=== PATIENT | male | born 1940 | race Caucasian/White ===

== ENCOUNTER 2020-10-09 13:51 | Inpatient (IN) | payer MEDICARE ==
[~2020-10-09] VITALS: Ht 182.9 cm; Wt 64.0 kg
[2020-10-09] MEDS ORDERED: CEFEPIME 1 GM in IV D5W 50 ML IV ONE (14:00)
[2020-10-09] MEDS ORDERED: ACETAMINOPHEN 650 MG/SUPP.RECT RC ONE ×2 (14:00→14:14)
[2020-10-09] MEDS ORDERED: VANCOMYCIN 1 GM in IV D5W 250 ML IV ONE (14:00)
--- NOTE | 2020-10-09 14:08 | NUR ---
ELEUTERIO CHESTERJevon "found in a car (pt states lives in a motel) Recently Dx w/sepsis AMS. BS-144" Patient a/ox2, verbally responsive with confusion. Patient appears to be warm to touch. Patient had a large bowel movement.
--- NOTE | 2020-10-09 14:12 | NUR ---
Pericare provided. Ice bath provided to patient for cooling measures.
--- NOTE | 2020-10-09 14:18 | NUR ---
2ND PERIPHERAL IV LINE INSERTED ON RFA, BLOOD DRAWN AND SENT TO LAB.
--- NOTE | 2020-10-09 14:20 | NUR ---
BALDERAS CATHETER REMOVED. AND RE-INSERTED A NEW BALDERAS FR16 WITH 600ML URINE OUTPUT.
[2020-10-09 14:24] LABS: BASOPHILS # (AUTO) 0.1 K/uL (0.0-0.2); BASOPHILS % (AUTO) 0.6 % (0.0-2.0); EOSINOPHILS % (AUTO) 0.3 % (0.0-6.0); HEMATOCRIT 28 % (33-45); HEMOGLOBIN 9.3 g/dL (11.5-14.8); LYMPHOCYTES # (AUTO) 0.4 K/uL (0.8-4.8); LYMPHOCYTES % (AUTO) 5.1 % (20.0-44.0); MEAN CORPUSCULAR HGB CONC 33 g/dl (31.0-36.0); MEAN CORPUSCULAR VOLUME 89 fL (82-100); MONOCYTES # (AUTO) 0.1 K/uL (0.1-1.30); MONOCYTES % (AUTO) 1.4 % (2.0-12.0); NEUTROPHILS # (AUTO) 7.8 K/uL (1.8-8.9); NEUTROPHILS % (AUTO) 92.6 % (43.0-81.0); PLATELET COUNT (AUTO) 314 K/uL (150-450); RED BLOOD CELL COUNT(AUTO) 3.19 MIL/uL (4.0-5.2); WHITE BLOOD COUNT (AUTO) 8.4 K/uL (4.3-11.0)
[2020-10-09 14:25] LABS: BILIRUBIN,URINE Negative (NEGATIVE); COLOR,URINE AMBER (YELLOW); LEUKOCYTE ESTERASE ,URINE Large (NEGATIVE); NITRITE, URINE Negative (NEGATIVE); PROTEIN,URINE 100 mg/dl (NEGATIVE); UGLUCOSE Negative (NEGATIVE); UROBILINOGEN,URINE 0.2 EU/dL (0.2)
[2020-10-09] MEDS ORDERED: IV NS 0.9% 1,000 ML BAG IV ONE (14:30)
[2020-10-09 14:34] LABS: CALCIUM, SERUM 8.5 mg/dL (8.5-10.1); CARBON DIOXIDE 20 mmol/L (21-32); CHLORIDE 106 mmol/L (98-107); CREATININE 1.2 mg/dL (0.6-1.3); GLUCOSE 122 mg/dL (74-106); POTASSIUM 4.3 mmol/L (3.5-5.1); SODIUM SERUM 138 mmol/L (136-145); UREA NITROGEN, BLOOD 29 mg/dL (7-18)
[2020-10-09 14:39] LABS: BACTERIA,URINE Many /HPF (None Seen); RBC,URINE 81-100 /HPF (0-2); SQUAMOUS EPITHELIAL CELL,UR Few /HPF (None Seen); WBC,URINE TOO NUMEROUS TO COUN /HPF (0-3)
[2020-10-09 14:40] LABS: ALANINE AMINOTRANSFERASE 53 U/L (12-78); ALBUMIN 2.2 g/dL (3.4-5.0); ALKALINE PHOSPHATASE 283 U/L (46-116); ASPARTATE AMINOTRANSFERASE 86 U/L (15-37); BILIRUBIN,DIRECT 0.2 mg/dL (0.0-0.2); BILIRUBIN,TOTAL 0.5 mg/dL (0.2-1.0); TOTAL PROTEIN, SERUM 6.7 g/dL (6.4-8.2)
--- NOTE | 2020-10-09 14:40 | NUR ---
Patient taken to CT.
--- NOTE | 2020-10-09 14:48 | NUR ---
Patient came back from CT.
[2020-10-09] MEDS ORDERED: DILT120C47 PO (15:01)
[2020-10-09] MEDS ORDERED: AMLO2.5T4 PO (15:01)
[2020-10-09] MEDS ORDERED: TERA10CA4 PO (15:01)
[2020-10-09] MEDS ORDERED: LITH300C2 PO (15:01)
[2020-10-09] MEDS ORDERED: LEVO50TA8 PO (15:01)
[2020-10-09] MEDS ORDERED: ATOR80TA PO (15:10)
[2020-10-09] MEDS ORDERED: OMEP40CA21 PO (15:10)
--- NOTE | 2020-10-09 15:20 | NUR ---
COVID SWAB SENT TO LAB.
[2020-10-09] MEDS ORDERED: MORPHINE SULFATE INJ 2 MG/ML DISP.SYRIN IV PRN (15:30)
[2020-10-09] MEDS ORDERED: HYDROCODONE/APAP 5/325MG TABLET PO PRN (15:30)
[2020-10-09] MEDS ORDERED: ONDANSETRON HCL/PF 4 MG/2 ML VIAL IVP PRN (15:30)
[2020-10-09] MEDS ORDERED: Z GUARD REMEDY 2 OZ OINT TP PRN (15:30)
[2020-10-09] MEDS ORDERED: ACETAMINOPHEN 325 MG TABLET PO PRN (15:30)
[2020-10-09] MEDS ORDERED: TEMAZEPAM 15 MG CAPSULE PO PRN (15:30)
[2020-10-09] MEDS ORDERED: MAG HYDROX/AL HYDROX/SIMETH 30 ML UDC PO PRN (15:30)
[2020-10-09] MEDS ORDERED: MAGNESIUM HYDROXIDE 30 ML UDC PO PRN (15:30)
--- NOTE | 2020-10-09 15:47 | NUR ---
CONTINUE COOLING MEASURES.
--- NOTE | 2020-10-09 15:57 | NUR ---
NURSING FOREST NURSERY WORKER CALLED FOR TELE BED.
[2020-10-09] MEDS ORDERED: LORAZEPAM INJ 2 MG/ML VIAL IV PRN (16:00)
--- NOTE | 2020-10-09 16:06 | NUR ---
room 108
--- NOTE | 2020-10-09 16:23 | NUR ---
REPORT GIVEN TO PAUL LACKEY FOR VANCE.
--- NOTE | 2020-10-09 17:12 | NUR ---
PATIENT TRANSFERRED TO ROOM 108, PATIENT IS MORE ALERT, ORIENTED AND VERBALLY RESPONSIVE, ABLE TO COMMUNICATE. PATIENT ENDORSED TO PAUL LACKEY.
[2020-10-09 17:45] VITALS: BP 113/43
[2020-10-09] MEDS ORDERED: ENOXAPARIN SODIUM 40 MG/0.4 ML DISP.SYRIN SQ SCH (18:00)
[2020-10-09] MEDS ORDERED: ASPIRIN 325 MG TABLET PO ONE (18:00)
--- NOTE | 2020-10-09 20:30 | NUR ---
RN OPENING NOTE RECEIVED PT AWAKE IN BED. A/O X3. PT IS STABLE ON ROOM AIR. NO SOB OR S/S OF RESPIRATORY DISTRESS NOTED. PT HAS NO C/O PAIN OR DISCOMFORT AT THIS TIME. IV ACCESS IN LEFT AC #18 AND RIGHT FA #18, INTACT AND PATENT. SAFETY MEASURES MAINTAINED. BED IN LOWEST LOCKED POSITION, HOB ELEVATED, SIDE RAILS UP X2. CALL LIGHT AND TABLE WITHIN REACH. WILL CONTINUE WITH PLAN OF CARE.
[2020-10-10] VITALS: BP 113/58
[2020-10-10] MEDS: CEFEPIME 1 GM in IV D5W 50 ML IV SCH ×2 (02:00→13:09)
[2020-10-10] MEDS ORDERED: VANCOMYCIN 0.75 GM in IV D5W 250 ML IV SCH (03:00)
[2020-10-10] MEDS: IV NS 0.9% 1,000 ML IV PRN ×3 (03:50→21:30)
[2020-10-10 04:00] VITALS: BP 117/45
--- NOTE | 2020-10-10 06:25 | NUR ---
RN CLOSING NOTE PT IS AWAKE IN BED. A/O X3. PT IS STABLE ON ROOM AIR. NO SOB OR S/S OF RESPIRATORY DISTRESS NOTED. TELE FRAME TABLE OPERATOR HELPER READS SR 62. PT HAS NO C/O PAIN OR DISCOMFORT AT THIS TIME. IV ACCESS IS INTACT, PATENT, AND FLUSHING WELL. ALL NEEDS HAVE BEEN MET. SAFETY PRECAUTIONS MAINTAINED AT ALL TIMES. BED IN LOWEST LOCKED POSITION, HOB ELEVATED, SIDE RAILS UP X2. CALL LIGHT AND TABLE WITHIN REACH. WILL ENDORSE TO ONCOMING NURSE FOR VANCE.
[2020-10-10 07:04] LABS: BASOPHILS % (AUTO) 0.1 % (0.0-2.0); EOSINOPHILS % (AUTO) 0.2 % (0.0-6.0); HEMATOCRIT 26 % (39-51); HEMOGLOBIN 8.2 g/dL (13.5-17.5); LYMPHOCYTES # (AUTO) 1.4 K/uL (0.8-4.8); LYMPHOCYTES % (AUTO) 7.1 % (20.0-44.0); MEAN CORPUSCULAR HGB CONC 32 g/dl (31.0-36.0); MEAN CORPUSCULAR VOLUME 90 fL (80-96); MONOCYTES # (AUTO) 1.7 K/uL (0.1-1.30); MONOCYTES % (AUTO) 8.4 % (2.0-12.0); NEUTROPHILS # (AUTO) 16.8 K/uL (1.8-8.9); NEUTROPHILS % (AUTO) 84.2 % (43.0-81.0); PLATELET COUNT (AUTO) 287 K/uL (150-450); RED BLOOD CELL COUNT(AUTO) 2.84 MIL/uL (4.5-6.0); WHITE BLOOD COUNT (AUTO) 19.9 K/uL (4.3-11.0)
[2020-10-10 07:11] LABS: CALCIUM, SERUM 7.8 mg/dL (8.5-10.1); CREATININE 0.9 mg/dL (0.6-1.3); MAGNESIUM 2.1 mg/dL (1.8-2.4); PHOSPHORUS 3.8 mg/dL (2.5-4.9); POTASSIUM 3.6 mmol/L (3.5-5.1)
[2020-10-10 07:34] LABS: THYROID STIMULATING HORMONE 0.131 uIU/mL (0.358-3.74)
[2020-10-10 08:00] VITALS: BP 130/35
--- NOTE | 2020-10-10 08:05 | NUR ---
RN notes: Pt received alert awake oriented X 3. On RA, no breathing distress noted. Denies pain & discomfort. SR on tele monitor. IV site I/D/C, running IV fluids as ordered. Safety measures observed. Encourage pt to call for assistance. Call light within reach. Will continue to monitor.
[2020-10-10] MEDS: ASPIRIN 81 MG TAB.CHEW PO SCH (08:50)
[2020-10-10] MEDS: PANTOPRAZOLE 40 MG VIAL IV SCH (08:50)
[2020-10-10] MEDS: ENOXAPARIN SODIUM 80 MG/0.8 ML DISP.SYRIN SQ SCH ×2 (10:30→21:07)
[2020-10-10] MEDS: DILTIAZEM HCL CD 120 MG PO SCH (11:55)
[2020-10-10 12:00] VITALS: BP 116/45
--- NOTE | 2020-10-10 15:34 | NUR ---
RN Note: refused turn & reposition q2h Encourage pt to turn & reposition q2h. R/B discussed. Pt verbalized understanding. Offered assistance. Still refused. At this time refused skin assessment as well to monitor sacrum redness. Will attempt again to re-assess skin.
[2020-10-10 16:00] VITALS: BP 123/46
[2020-10-10] MEDS: ENSURE ENLIVE 237 ML LIQUID (VANILLA) PO SCH (17:00)
--- NOTE | 2020-10-10 18:33 | NUR ---
RN Note: Pt remains stable during shift. Agree with DVT pump as ordered. Noted turning & repositioning independently. Pt requested preferred male nurse. beaming machine operator notified of pt request. Will endorse to PM shift for continuity of care.
--- NOTE | 2020-10-10 19:30 | NUR ---
RN OPENING NOTES: RECEIVED PT A/OX3-4 IN BED SLEEPING COMFORTABLY. PATIENT IN NO S/SX OF ACUTE DISTRESS AT THIS TIME. NO SOB NOTED. PATIENT'S BREATHING IS EVEN AND UNLABORED. PATIENT IS ON ROOM AIR; TOLERATING WELL WITH O2 SAT OF >95 AT THE TOME OF RECEIVED. PATIENT ON TELE MONITORING READING SINUS RHYTHM HR IS @60s AT THE TIME OF RECEIVED. PATIENT ON CARDIAC DIET; TOLERATES WELL. NOTED IV SITE ON R FA #18 ; PATENT, INTACT AND FLUSHING WELL; NO S/S OF INFECTION OR INFILTRATION. WITH IV FLUID RUNNING ORDERED. BALDERAS CATH IN PLACE, MODERATE URINE OUTPUT NOTED. WITH DVT PUMP ON. SAFETY MEASURES HAVE BEEN PROVIDED AND IMPLEMENTED. PATIENT BED ALARM IS ON. HEAD OF BED ELEVATED. BED IS LOCKED, IN LOWEST POSITION AND SIDE RAILS UP. CALL LIGHT WITHIN REACH OF THE PATIENT. APPLICABLE ISOLATION PRECAUTIONS IN PLACE. WILL CONTINUE TO MONITOR AND REASSESS FOR ANY CHANGES AND WILL CARRY OUT ANY ONGOING AND ACTIVE MD ORDER.
[2020-10-10 20:00] VITALS: BP 101/44
[2020-10-10] MEDS: TERAZOSIN HCL 5 MG CAPSULE PO SCH (21:08)
[2020-10-10] MEDS: ATORVASTATIN 10 MG TABLET PO SCH (21:08)
--- NOTE | 2020-10-10 23:00 | NUR ---
RN NOTES NO CHANGE IN PATIENT CONDITION AT THIS TIME PATIENT VITALS STABLE, NO SIGNS OF ACUTE RESPIRATORY DISTRESS. CORPORATE INVESTIGATOR MADE AWARE. WILL CONTINUE TO MONITOR AND REASSESS FOR ANY CHANGES THROUGHOUT THE SHIFT.
[2020-10-11] VITALS: BP 102/39
[2020-10-11] MEDS: CEFEPIME 1 GM in IV D5W 50 ML IV SCH ×2 (01:03→13:01)
[2020-10-11 04:00] VITALS: BP 116/44
[2020-10-11 06:33] LABS: BASOPHILS % (AUTO) 0.2 % (0.0-2.0); HEMATOCRIT 24 % (39-51); LYMPHOCYTES # (AUTO) 1.1 K/uL (0.8-4.8); LYMPHOCYTES % (AUTO) 10.9 % (20.0-44.0); MEAN CORPUSCULAR HGB CONC 33 g/dl (31.0-36.0); MEAN CORPUSCULAR VOLUME 88 fL (80-96); MONOCYTES % (AUTO) 9.9 % (2.0-12.0); NEUTROPHILS # (AUTO) 8.1 K/uL (1.8-8.9); PLATELET COUNT (AUTO) 305 K/uL (150-450); RED BLOOD CELL COUNT(AUTO) 2.76 MIL/uL (4.5-6.0); WHITE BLOOD COUNT (AUTO) 10.5 K/uL (4.3-11.0)
--- NOTE | 2020-10-11 06:52 | NUR ---
RN CLOSING NOTE: PATIENT REMAINS IN ROOM IN NO SIGNS OF RESPIRATORY DISTRESS, PATIENT STILL ON ROOM AIR ;TOLERATING WELL SATURATING @ >95% SP02. SAFETY MEASURES IMPLEMENTED, BED IN LOWEST POSITION, LOCKED, SIDE RAILS UP, CALL LIGHT WITHIN REACH. ALL NEEDS AND ORDERS ADDRESSED DURING THE SHIFT. IV ACCESS MAINTAINED INTACT, SECURED AND FLUSHING WELL. ALL DUE MEDS GIVEN ORDERED & SCHEDULED ; PATIENT TOLERATED WELL. PATIENT KEPT CLEAN & COMFORTABLE WITHIN THE SHIFT. PATIENT ENDORSED TO INCOMING SHIFT RN WITH STABLE VITAL SIGN AND FOR CONTINUITY OF CARE AND WILL ENDORSE INFO ABOUT SCHEDULED PROCEDURE CT ANGIO ; CONSENT AND PRE-OP CHECK LIST IN THE CHART, NO TIME SCHEDULED TIME GIVEN. MILK COLLECTOR MADE AWARE.
[2020-10-11] MEDS: LEVOTHYROXINE SODIUM 50 MCG TABLET PO SCH (07:30)
--- NOTE | 2020-10-11 07:45 | NUR ---
RN NOTE PATIENT IS IN BED WITH HOB AT SEMII FOWLERS POSITION. PATIENT IS AOX3. PATIENT IS ON ROOM AIR WITH NO SIGNS OF LABORED BREATHING. BALDERAS CATHETER IS IN PLACE DRAINING CLEAR YELLOW URINE. RFA #18 IS PATENT AND INTACT. BED IS LOCKED IN THE LOWEST POSITION, 3 GUARD RAILS RAISED, CALL MOONEY WITHIN REACH AND ALL HOSPITAL SAFETY PRECAUTIONS ARE BEING FOLLOWED. WILL CONTINUE TO MONITOR THROUGHOUT SHIFT.
[2020-10-11 08:00] VITALS: BP 117/52
[2020-10-11] MEDS: PANTOPRAZOLE 40 MG VIAL IV SCH (08:03)
[2020-10-11] MEDS: ENOXAPARIN SODIUM 80 MG/0.8 ML DISP.SYRIN SQ SCH ×2 (08:04→21:14)
[2020-10-11] MEDS: DILTIAZEM HCL CD 120 MG PO SCH (08:05)
[2020-10-11] MEDS: ASPIRIN 81 MG TAB.CHEW PO SCH (08:05)
[2020-10-11] MEDS: ENSURE ENLIVE 237 ML LIQUID (VANILLA) PO SCH ×2 (08:06→17:48)
[2020-10-11 08:25] LABS: ALBUMIN 1.5 g/dL (3.4-5.0); BILIRUBIN,TOTAL 0.2 mg/dL (0.2-1.0); CALCIUM, SERUM 7.6 mg/dL (8.5-10.1); CREATININE 0.8 mg/dL (0.6-1.3); POTASSIUM 3.6 mmol/L (3.5-5.1); TOTAL PROTEIN, SERUM 4.9 g/dL (6.4-8.2)
--- NOTE | 2020-10-11 09:28 | NUR ---
TRIED 3X G18 ON AC UNSUCCESSFUL,OBTAINED MIDLINE ORDER FOR CTCA.NURSING SUP MADE AWARE.
[2020-10-11] MEDS ORDERED: METOPROLOL TARTRATE INJ 5 MG/5 ML AMPUL IVP PRN (11:00)
[2020-10-11] MEDS ORDERED: NITROGLYCERIN 0.4 MG/TAB BOTTLE SL PRN (11:00)
[2020-10-11] MEDS ORDERED: METOPROLOL TARTRATE INJ 5 MG/5 ML AMPUL ONE (11:33)
[2020-10-11] MEDS ORDERED: NITROGLYCERIN 0.4 MG/TAB BOTTLE ONE (11:33)
[2020-10-11 12:00] VITALS: BP 98/53
[2020-10-11] MEDS: IV NS 0.9% 1,000 ML IV PRN (12:13)
[2020-10-11 16:00] VITALS: BP 119/58
--- NOTE | 2020-10-11 18:54 | NUR ---
RN NOTE PATIENT IS IN BED WITH HOB AT SEMI FOWLERS POSITION. PATIENT IS AOX3. PATIENT IS ON ROOM AIR WITH NO SIGNS OF LABORED BREATHING. BALDERAS CATHETER IS IN PLACE DRAINING CLEAR YELLOW URINE. RFA #18 AND JELANI #18 ARE PATENT AND INTACT. BED IS LOCKED IN THE LOWEST POSITION, 3 GUARD RAILS RAISED, CALL MOONEY WITHIN REACH AND ALL HOSPITAL SAFETY PRECAUTIONS ARE BEING FOLLOWED. WILL CONTINUE TO MONITOR THROUGHOUT SHIFT. ALL DUE MEDS GIVEN AND PATIENT REMAINED STABLE THROUGHOUT SHIFT. WILL ENDORSE TO EXECUTIVE VP RN.
[2020-10-11 20:00] VITALS: BP 130/48
--- NOTE | 2020-10-11 20:00 | NUR ---
RN NOTE RECEIVED PT IN BED A/A/OX3,ON RA SATING 94TO95%.PT IS ON TELE MONITOR SHOWING V PACING WITH HR IN 70s.PT HAS BALDERAS DRAINING YELLOW URINE,
[2020-10-11] MEDS: ATORVASTATIN 10 MG TABLET PO SCH (21:19)
[2020-10-11] MEDS: TERAZOSIN HCL 5 MG CAPSULE PO SCH (21:19)
[2020-10-12] VITALS: BP 120/55
[2020-10-12] MEDS: CEFEPIME 1 GM in IV D5W 50 ML IV SCH (02:02)
[2020-10-12] MEDS: IV NS 0.9% 1,000 ML IV PRN (02:03)
[2020-10-12 04:00] VITALS: BP 133/68
--- NOTE | 2020-10-12 07:13 | NUR ---
RN NOTE REPORT GIVEN TO ONCOMING SHIFT FOR VANCE.
[2020-10-12 07:18] LABS: CREATININE 0.9 mg/dL (0.6-1.3)
--- NOTE | 2020-10-12 07:40 | NUR ---
RN NOTE PATIENT IS IN BED WITH HOB AT SEMII FOWLERS POSITION. PATIENT IS AOX3. PATIENT IS ON ROOM AIR WITH NO SIGNS OF LABORED BREATHING. BALDERAS CATHETER IS IN PLACE DRAINING CLEAR YELLOW URINE. RFA AND JELANI #18 ARE PATENT AND INTACT. BED IS LOCKED IN THE LOWEST POSITION, 3 GUARD RAILS RAISED, CALL MOONEY WITHIN REACH AND ALL HOSPITAL SAFETY PRECAUTIONS ARE BEING FOLLOWED. WILL CONTINUE TO MONITOR THROUGHOUT SHIFT.
[2020-10-12 08:00] VITALS: BP 133/55
[2020-10-12] MEDS: LEVOTHYROXINE SODIUM 50 MCG TABLET PO SCH (08:23)
[2020-10-12] MEDS: ASPIRIN 81 MG TAB.CHEW PO SCH (08:23)
[2020-10-12] MEDS: DILTIAZEM HCL CD 120 MG PO SCH (08:23)
[2020-10-12] MEDS: PANTOPRAZOLE 40 MG VIAL IV SCH (08:23)
[2020-10-12] MEDS: ENOXAPARIN SODIUM 80 MG/0.8 ML DISP.SYRIN SQ SCH (08:25)
[2020-10-12] MEDS: ENSURE ENLIVE 237 ML LIQUID (VANILLA) PO SCH ×2 (08:27→16:27)
--- NOTE | 2020-10-12 10:21 | NUR ---
WOUND CARE CONSULT: PT PRESENTS WITH SACRAL SCAR, PRESENT ON ADMISSION. PT STATES HAD A WOUND RECENTLY ON HIS SACRUM AND THAT IT HEALED. RECOMMENDATIONS MADE FOR SKIN PROTECTION. DISCUSSED WITH NURSING STAFF. SHERRIE ISLAS MD IN AGREEMENT WITH PLAN OF CARE. Addendum: 10/12/20 at 1022 by LATANYA ORDAZ WNDNU Amended: Links added.
[2020-10-12 12:00] VITALS: BP 105/55
[2020-10-12] MEDS ORDERED: MEROPENEM 1 G in IV NS 0.9% 100 ML IV ONE (13:00)
[2020-10-12] MEDS ORDERED: OLAN5TAB3 PO (14:33)
[2020-10-12] MEDS ORDERED: DIVA-76 PO (14:33)
[2020-10-12] MEDS ORDERED: ARIP5TAB10 PO (14:33)
[2020-10-12 16:00] VITALS: BP 133/58
--- NOTE | 2020-10-12 18:53 | NUR ---
RN NOTE PATIENT IS IN BED WITH HOB AT SEMII FOWLERS POSITION. PATIENT IS AOX3. PATIENT IS ON ROOM AIR WITH NO SIGNS OF LABORED BREATHING. BALDERAS CATHETER IS IN PLACE DRAINING CLEAR YELLOW URINE. RFA AND JELANI #18 ARE PATENT AND INTACT. BED IS LOCKED IN THE LOWEST POSITION, 3 GUARD RAILS RAISED, CALL MOONEY WITHIN REACH AND ALL HOSPITAL SAFETY PRECAUTIONS ARE BEING FOLLOWED. ALL DUE MEDS GIVEN AND PATIENT REMAINED STABLE THROUGHOUT SHIFT. WILL ENDORSE TO SUPERVISOR LAMP SHADES RN.
[2020-10-12 20:00] VITALS: BP 117/49
[2020-10-12] MEDS: MEROPENEM 1 G in IV NS 0.9% 100 ML IV SCH (21:48)
[2020-10-12] MEDS: ATORVASTATIN 10 MG TABLET PO SCH (21:49)
[2020-10-12] MEDS: TERAZOSIN HCL 5 MG CAPSULE PO SCH (21:49)
[2020-10-13] VITALS: BP 127/61
[2020-10-13 04:00] VITALS: BP 131/64
[2020-10-13] MEDS: MEROPENEM 1 G in IV NS 0.9% 100 ML IV SCH ×3 (04:07→21:11)
[2020-10-13 06:17] LABS: CALCIUM, SERUM 8.1 mg/dL (8.5-10.1); CREATININE 0.8 mg/dL (0.6-1.3); POTASSIUM 4.2 mmol/L (3.5-5.1)
--- NOTE | 2020-10-13 07:30 | NUR ---
RN OPENING NOTE PT A/Ox3/3 IN BED SEMIFOWLER'S BREATHING RA SPO2 94%, WITH NO SIGNS OF RESP DISTRESS OR SOB, BREATHING EVEN AND UNLABORED. PT LT UPPER CHEST WALL PACEMAKER- V-PACING IN 70s ON TELEBOX. PT HAS JELANI MIDLINE SL, FLUSHED, PATENT AND INTACT, NO SIGNS OF INFILTRATION/INFECTION. PT HAS BALDERAS CATH DRAINING CLEAR YELLOW URINE TO GRAVITY. PT SACRAL SCAR COVERED IN MEPILEX NOTED. PT CURRENTLY DENIES PAIN, IS REQUESTING BIPOLAR MEDS, WILL F/U WITH . ALL PT SAFETY PRECAUTIONS IN PLACE, WILL CONT TO MONITOR
[2020-10-13 08:00] VITALS: BP 145/52
--- NOTE | 2020-10-13 08:00 | NUR ---
RN NOTE PT CONSUMED BREAKFAST AND COFFEE, LEXISCAN NUCLEAR STRESS TEST SHCEDULED FOR TOMORROW @ 0700. PT TO BE NPO AFTER DINNER TONIGHT
[2020-10-13] MEDS: LEVOTHYROXINE SODIUM 50 MCG TABLET PO SCH (08:53)
[2020-10-13] MEDS: PANTOPRAZOLE 40 MG VIAL IV SCH (08:53)
[2020-10-13] MEDS: ASPIRIN 81 MG TAB.CHEW PO SCH (08:53)
[2020-10-13] MEDS: DILTIAZEM HCL CD 120 MG PO SCH (08:54)
[2020-10-13] MEDS: ENSURE ENLIVE 237 ML LIQUID (VANILLA) PO SCH ×3 (08:55→17:54)
[2020-10-13] MEDS ORDERED: OLANZAPINE 5 MG TABLET PO PRN (10:30)
[2020-10-13 10:42] LABS: BASOPHILS # (AUTO) 0.1 K/uL (0.0-0.2); BASOPHILS % (AUTO) 1.3 % (0.0-2.0); EOSINOPHILS % (AUTO) 3.7 % (0.0-6.0); HEMATOCRIT 25 % (39-51); HEMOGLOBIN 8.3 g/dL (13.5-17.5); LYMPHOCYTES # (AUTO) 1.5 K/uL (0.8-4.8); LYMPHOCYTES % (AUTO) 17.4 % (20.0-44.0); MEAN CORPUSCULAR HGB CONC 33 g/dl (31.0-36.0); MEAN CORPUSCULAR VOLUME 88 fL (80-96); MONOCYTES # (AUTO) 0.8 K/uL (0.1-1.30); MONOCYTES % (AUTO) 9.4 % (2.0-12.0); NEUTROPHILS # (AUTO) 5.9 K/uL (1.8-8.9); NEUTROPHILS % (AUTO) 68.2 % (43.0-81.0); PLATELET COUNT (AUTO) 317 K/uL (150-450); RED BLOOD CELL COUNT(AUTO) 2.83 MIL/uL (4.5-6.0); WHITE BLOOD COUNT (AUTO) 8.6 K/uL (4.3-11.0)
[2020-10-13] MEDS: ARIPIPRAZOLE 5 MG TABLET PO SCH (11:30)
[2020-10-13] MEDS: ENOXAPARIN SODIUM 40 MG/0.4 ML DISP.SYRIN SQ SCH (11:31)
[2020-10-13 12:00] VITALS: BP 127/49
[2020-10-13] MEDS: DIVALPROEX SODIUM 250 MG TABLET.DR PO SCH ×2 (12:30→17:54)
[2020-10-13 16:00] VITALS: BP 123/61
--- NOTE | 2020-10-13 19:15 | NUR ---
RN CLOSING NOTE NO CHANGES TO PT STATUS. PT NPO UNTIL LEXISCAN STRESS TEST TOMORROW. ALL PT SAFETY PRECAUTIONS IN PLACE. VANCE ENDORSED TO RN
[2020-10-13 20:00] VITALS: BP 137/55
[2020-10-13] MEDS: TERAZOSIN HCL 5 MG CAPSULE PO SCH (21:42)
[2020-10-13] MEDS: ATORVASTATIN 40 MG TABLET PO SCH (21:43)
[2020-10-14] VITALS: BP 109/60
[2020-10-14 04:00] VITALS: BP 135/58
[2020-10-14] MEDS: MEROPENEM 1 G in IV NS 0.9% 100 ML IV SCH ×3 (05:34→21:16)
[2020-10-14] MEDS ORDERED: REGADENOSON 0.4 MG/5 ML DISP.SYRIN IVP ONE (07:00)
[2020-10-14 07:03] LABS: BASOPHILS # (AUTO) 0.1 K/uL (0.0-0.2); BASOPHILS % (AUTO) 0.8 % (0.0-2.0); EOSINOPHILS % (AUTO) 4.7 % (0.0-6.0); HEMATOCRIT 28 % (39-51); HEMOGLOBIN 9.3 g/dL (13.5-17.5); LYMPHOCYTES # (AUTO) 1.8 K/uL (0.8-4.8); LYMPHOCYTES % (AUTO) 16.8 % (20.0-44.0); MEAN CORPUSCULAR HGB CONC 33 g/dl (31.0-36.0); MEAN CORPUSCULAR VOLUME 88 fL (80-96); MONOCYTES # (AUTO) 0.9 K/uL (0.1-1.30); MONOCYTES % (AUTO) 8.9 % (2.0-12.0); NEUTROPHILS # (AUTO) 7.2 K/uL (1.8-8.9); NEUTROPHILS % (AUTO) 68.8 % (43.0-81.0); PLATELET COUNT (AUTO) 372 K/uL (150-450); RED BLOOD CELL COUNT(AUTO) 3.19 MIL/uL (4.5-6.0); WHITE BLOOD COUNT (AUTO) 10.5 K/uL (4.3-11.0)
[2020-10-14] MEDS: LEVOTHYROXINE SODIUM 50 MCG TABLET PO SCH ×2 (07:10→09:14)
--- NOTE | 2020-10-14 07:20 | NUR ---
RN OPENING NOTES RECEIVED PT IN BED. A/O X3-4. STABLE ON ROOM AIR. NO S/S OF RESPIRATORY DISTRESS. LEFT UPPER CHEST WALL PACEMAKER, V-PACING IN 70s ON TELE MONITOR. IV ACCESS ON JELANI MIDLINE. INTACT, PATENT AND FLUSHED. BALDERAS CATH IN PLACE DRAINING CLEAR YELLOW URINE TO GRAVITY. NO PAIN REPORTED AT THIS TIME. PT CONSENTS LEXISCAN STRESS TEST FOR THIS MORNING. SAFETY PRECAUTIONS IN PLACE. CALL LIGHT WITHIN REACH. BED LOCKED AND IN LOWEST POSITION WITH SIDE RAILS UP X2. WILL CONTINUE TO MONITOR.
[2020-10-14 07:35] LABS: CALCIUM, SERUM 8.4 mg/dL (8.5-10.1); CREATININE 0.9 mg/dL (0.6-1.3); POTASSIUM 4.9 mmol/L (3.5-5.1)
[2020-10-14 08:00] VITALS: BP 137/56
--- NOTE | 2020-10-14 08:30 | NUR ---
RN NOTES PT BROUGHT BACK TO ROOM, IN STABLE CONDITION. VS STABLE. PT IS ON CARDIAC DIET. ATE 100% ON BREAKFAST.
[2020-10-14] MEDS ORDERED: PANTOPRAZOLE 40 MG/PACK PACK GT SCH (09:00)
[2020-10-14] MEDS: ASPIRIN 81 MG TAB.CHEW PO SCH (09:14)
[2020-10-14] MEDS: DILTIAZEM HCL CD 120 MG PO SCH (09:14)
[2020-10-14] MEDS: DIVALPROEX SODIUM 250 MG TABLET.DR PO SCH ×3 (09:14→17:07)
[2020-10-14] MEDS: PANTOPRAZOLE 40 MG/PACK PACK PO SCH (09:14)
[2020-10-14] MEDS: ARIPIPRAZOLE 5 MG TABLET PO SCH (09:14)
[2020-10-14] MEDS: ENSURE ENLIVE 237 ML LIQUID (VANILLA) PO SCH ×2 (09:15→17:14)
[2020-10-14] MEDS: ENOXAPARIN SODIUM 40 MG/0.4 ML DISP.SYRIN SQ SCH (09:16)
[2020-10-14 12:00] VITALS: BP 124/56
[2020-10-14 16:00] VITALS: BP 123/85
--- NOTE | 2020-10-14 19:08 | NUR ---
RN CLOSING NOTES NO SIGNIFICANT CHANGES THROUGHOUT THE SHIFT. NO SOB OR ANY PAIN REPORTED. ALL DUE MEDS GIVEN. NEEDS ATTENDED. KEPT CLEAN AND DRY. RESTING COMFORTABLY IN BED. ENDORSED TO NIGHT RN FOR VANCE.
--- NOTE | 2020-10-14 19:30 | NUR ---
RN NOTE RECEIVED PATIENT IN BED. A/OX4. TOLERATING ROOM AIR. RESPIRATIONS ARE EVEN AND UNLABORED. NO S/S SOB NOTED. NO C/O PAIN. EXTERNAL TELE MONITOR READS 100% V-PACING HR 80. IN NO APPARENT DISTRESS. IV ACCESS IN JELANI MIDLINE PATENT ND SALINE LOCKED. BED IS LOW AND LOCKED, HOB ELEVATED IN SEMI FOWLERS,SIDE RAILS UP X3, CALL LIGHT WITHIN REACH. WILL CONTINUE TO MONITOR THROUGHOUT SHIFT.
[2020-10-14 20:00] VITALS: BP 128/59
[2020-10-14] MEDS: TERAZOSIN HCL 5 MG CAPSULE PO SCH (21:16)
[2020-10-14] MEDS: ATORVASTATIN 40 MG TABLET PO SCH (21:16)
[2020-10-15 04:00] VITALS: BP 112/54
[2020-10-15] MEDS: MEROPENEM 1 G in IV NS 0.9% 100 ML IV SCH ×3 (04:54→21:01)
--- NOTE | 2020-10-15 06:29 | NUR ---
RN NOTE PATIENT RESTING IN BED. A/OX4. REMAINS TOLERATING ROOM AIR. NO RESP DISTRESS. NO PAIN. CONTINUES TO BE 100% V-PACING.NO DISTRESS. IV IN JELANI MIDLINE RUNNING NS@100ML/HR. BED REMAINS LOW AND LOCKED, HOB ELEVATED IN SEMI FOWLERS,SIDE RAILS UP X3, CALL LIGHT WITHIN REACH. WILL ENDORSE TO ONCOMING SHIFT. Addendum: 10/15/20 at 0633 by LISA WOO RN PATIENT HAS NO FLUIDS RUNNING
[2020-10-15 06:32] LABS: BASOPHILS # (AUTO) 0.1 K/uL (0.0-0.2); BASOPHILS % (AUTO) 0.6 % (0.0-2.0); HEMATOCRIT 29 % (39-51); HEMOGLOBIN 9.3 g/dL (13.5-17.5); LYMPHOCYTES # (AUTO) 1.8 K/uL (0.8-4.8); LYMPHOCYTES % (AUTO) 18.7 % (20.0-44.0); MEAN CORPUSCULAR HGB CONC 32 g/dl (31.0-36.0); MEAN CORPUSCULAR VOLUME 88 fL (80-96); MONOCYTES # (AUTO) 0.8 K/uL (0.1-1.30); MONOCYTES % (AUTO) 7.9 % (2.0-12.0); NEUTROPHILS # (AUTO) 6.4 K/uL (1.8-8.9); NEUTROPHILS % (AUTO) 67.8 % (43.0-81.0); PLATELET COUNT (AUTO) 399 K/uL (150-450); RED BLOOD CELL COUNT(AUTO) 3.29 MIL/uL (4.5-6.0); WHITE BLOOD COUNT (AUTO) 9.5 K/uL (4.3-11.0)
[2020-10-15 06:46] LABS: CALCIUM, SERUM 8.4 mg/dL (8.5-10.1); CREATININE 0.9 mg/dL (0.6-1.3); POTASSIUM 4.8 mmol/L (3.5-5.1)
--- NOTE | 2020-10-15 07:56 | NUR ---
AMBULANCE ATTENDANT NOTE PATIENT RESTING IN BED. A/OX4. REMAINS TOLERATING ROOM AIR. NO RESP DISTRESS. NO PAIN. CONTINUES TO BE 100% V-PACING.NO DISTRESS. IV IN JELANI MIDLINEINPLCED AND FLUSHED WELL . BED REMAINS LOW AND LOCKED, HOB ELEVATED IN SEMI FOWLERS,SIDE RAILS UP X3, CALL LIGHT WITHIN REACH NO SOB NOTED WILL CONT TO MONITOR CLOSELY
[2020-10-15 08:00] VITALS: BP 128/56
[2020-10-15] MEDS: DIVALPROEX SODIUM 250 MG TABLET.DR PO SCH ×3 (08:13→16:04)
[2020-10-15] MEDS: DILTIAZEM HCL CD 120 MG PO SCH (08:13)
[2020-10-15] MEDS: ARIPIPRAZOLE 5 MG TABLET PO SCH (08:13)
[2020-10-15] MEDS: ASPIRIN 81 MG TAB.CHEW PO SCH (08:14)
[2020-10-15] MEDS: PANTOPRAZOLE 40 MG/PACK PACK PO SCH (08:14)
[2020-10-15] MEDS: ENOXAPARIN SODIUM 40 MG/0.4 ML DISP.SYRIN SQ SCH (08:15)
[2020-10-15] MEDS: ENSURE ENLIVE 237 ML LIQUID (VANILLA) PO SCH ×2 (09:08→16:03)
--- NOTE | 2020-10-15 10:19 | NUR ---
television repair teacher note seen by dr huggins updated patient condition , awaiting for placement
[2020-10-15 12:00] VITALS: BP 108/59
--- NOTE | 2020-10-15 12:17 | NUR ---
ENGINEERING DOCUMENTATION SPECIALIST NOTE HAVING LUNCH , ALL NEEDS ATTENDED
--- NOTE | 2020-10-15 15:06 | NUR ---
telegraph messenger note seen by pt able to do some exercises ,not in distress
[2020-10-15 16:00] VITALS: BP 126/50
--- NOTE | 2020-10-15 18:17 | NUR ---
MONOMER RECOVERY SUPERVISOR NOTE RESTING COMFORTABLY , ALL NEEDS ATTENDED , ON RA NO SOB NOTED NO C\O PAIN OR DISCOMFORT , ON TELE MONITOR V PACING , RT UPPER ARM MID LINE IN PLACE AND FLUSHED WELL , BED IN LOWEST AND LOCKED POSITION , CALL LIGHT WITHIN REACH , WILL CONT TO MONITOR CLOSELY
--- NOTE | 2020-10-15 19:00 | NUR ---
RN NOTE RECEIVED PATIENT IN BED, AO X 3-4, IN NO S/SX OF ACUTE DISTRESS AT THIS TIME. SATURATION AT 95% ON ROOM AIR, V-PACING ON THE MONITOR, HR IS 81. NOTED JELANI MIDLINE INTACT, ALL HUBS PATENT AND FLUSHING WELL, NO S/S OF INFECTION. SAFETY MEASURES IMPLEMENTED. PATIENT BED ALARM IS ON. HEAD OF BED ELEVATED. BED IS LOCKED, IN LOWEST POSITION AND SIDE RAILS UP. CALL LIGHT WITHIN REACH OF THE PATIENT. WILL CONTINUE TO MONITOR AND REASSESS FOR ANY CHANGES.
[2020-10-15 20:00] VITALS: BP 105/64
[2020-10-15] MEDS: ATORVASTATIN 40 MG TABLET PO SCH (21:03)
[2020-10-15] MEDS: TERAZOSIN HCL 5 MG CAPSULE PO SCH (21:03)
[2020-10-16] VITALS: BP 96/51
[2020-10-16 04:00] VITALS: BP 117/57
[2020-10-16] MEDS: MEROPENEM 1 G in IV NS 0.9% 100 ML IV SCH ×2 (05:08→12:42)
[2020-10-16 05:43] LABS: BASOPHILS # (AUTO) 0.1 K/uL (0.0-0.2); BASOPHILS % (AUTO) 0.6 % (0.0-2.0); EOSINOPHILS % (AUTO) 4.6 % (0.0-6.0); HEMATOCRIT 28 % (39-51); HEMOGLOBIN 9.1 g/dL (13.5-17.5); LYMPHOCYTES # (AUTO) 1.9 K/uL (0.8-4.8); LYMPHOCYTES % (AUTO) 19.6 % (20.0-44.0); MEAN CORPUSCULAR HGB CONC 33 g/dl (31.0-36.0); MEAN CORPUSCULAR VOLUME 89 fL (80-96); MONOCYTES # (AUTO) 0.8 K/uL (0.1-1.30); MONOCYTES % (AUTO) 8.5 % (2.0-12.0); NEUTROPHILS # (AUTO) 6.3 K/uL (1.8-8.9); NEUTROPHILS % (AUTO) 66.7 % (43.0-81.0); PLATELET COUNT (AUTO) 409 K/uL (150-450); RED BLOOD CELL COUNT(AUTO) 3.11 MIL/uL (4.5-6.0); WHITE BLOOD COUNT (AUTO) 9.5 K/uL (4.3-11.0)
[2020-10-16 05:55] LABS: CALCIUM, SERUM 8.2 mg/dL (8.5-10.1); CREATININE 0.9 mg/dL (0.6-1.3); POTASSIUM 4.4 mmol/L (3.5-5.1)
--- NOTE | 2020-10-16 06:43 | NUR ---
RN NOTE NOTED PER ORTHOPEDICS PEDIATRIC PHYSICIAN PATIENT REFUSED BLOOD DRAW FOR AM LABS. SILICATOR MADE AWARE. WILL ENDORSE TO AM SHIFT RN
--- NOTE | 2020-10-16 07:25 | NUR ---
RN OPENING NOTES RECEIVED PT IN BED, AWAKE. A/O X4. STABLE ON ROOM AIR, SATURATING @96%. NO SOB OR ANY S/SX OF ACUTE DISTRESS AT THIS TIME. V-PACING ON THE MONITOR. IV ACCESS AT JELANI MIDLINE INTACT, PATENT AND FLUSHED. NO PAIN REPORTED. SAFETY MEASURES IMPLEMENTED. CALL LIGHT WITHIN REACH. BED LOCKED AND IN LOWEST POSITION WITH SIDE RAILS UP X2. WILL CONTINUE TO MONITOR.
[2020-10-16 08:00] VITALS: BP 136/79
[2020-10-16] MEDS: LEVOTHYROXINE SODIUM 50 MCG TABLET PO SCH (08:25)
[2020-10-16] MEDS: ARIPIPRAZOLE 5 MG TABLET PO SCH (08:25)
[2020-10-16] MEDS: ASPIRIN 81 MG TAB.CHEW PO SCH (08:25)
[2020-10-16] MEDS: DIVALPROEX SODIUM 250 MG TABLET.DR PO SCH ×2 (08:27→12:42)
[2020-10-16] MEDS: DILTIAZEM HCL CD 120 MG PO SCH (08:27)
[2020-10-16] MEDS: PANTOPRAZOLE 40 MG/PACK PACK PO SCH (08:28)
[2020-10-16] MEDS: ENOXAPARIN SODIUM 40 MG/0.4 ML DISP.SYRIN SQ SCH (08:31)
[2020-10-16] MEDS: ENSURE ENLIVE 237 ML LIQUID (VANILLA) PO SCH (08:37)
[2020-10-16] MEDS ORDERED: MERO1VIA23 IV (09:33)
--- NOTE | 2020-10-16 10:55 | NUR ---
"Storage Battery Tester consult: inpatient services director consult requested for homelessness. Patient is a 80-year-old, male. SW met with patient at his bedside in the med-surg unit. Patient was alert and oriented x4. Patient was calm and watching television. Per chart, patient was brought in by ambulance on 10/09/20 for sepsis. Patient was found in a car, and patient reported that he has been staying at a motel. Patient stated that he is currently homeless. Patient reported that he receives SSI as a source of income. SW asked the patient if he is ambulatory and patient stated that he uses a walker or wheelchair. Patient stated that he needs some assistance to complete his ADL's, such as going to the bathroom or showering. SW asked the patient if he has a history of substance use and patient denied history. SW assessed patient's history of mental illness and patient reported, Bipolar Disorder. Patient stated that he is currently taking psychiatric medication but was unable to recall the name of the prescriptions. Patient denied suicidal or homicidal ideation. SW offered the patient homeless and outpatient mental health resources. Patient accepted the resources. Patient signed the homeless waiver, and SW filed the waiver in the patient's chart. Per machine adjuster leader case trim, Ioana, patient will be discharged to [id number] [place] [phone]; . PLAN: Patient will be discharged to [facility]. No further SS intervention at this time, however, SW will remain available as needed. RESOURCES: Year-round shelters: [facility] [address] [place], [place] [id number] ; [facility] [address] [place] [address]; [id number] [facility] [address] SPA 4 | [facility] [place] Provider: [facility] Address: [address], [address] # of Beds: 48 Population Served: [facility] Provider: [facility] Address: [address] [facility], [address] # of Beds: 73 Population Served: [facility] 6 | [facility] Provider: [facility] Address: [address] [facility], [address] # of Beds: 63 Population Served: [facility] 3 | [facility] Provider: [facility] [place] Address: [address] [facility], [address] # of Beds: 75 Population Served: [facility] 8 | [facility] Provider: [facility] [place] Address: [address] [facility], [address] # of Beds: 80 Population Served: [facility] SPA 1 | [facility] Provider: [facility] [place] Address: [id number] [place] [address], [address] # of Beds: 85 Population Served: [facility] 2 | [facility] Provider: [facility] Address: Confidential (please call for location) # of Beds: 52 Population Served: [facility] 4 | [facility] Provider: [facility] Address: [address] [facility], [address] # of Beds: 49 Population Served: [facility] Provider: [facility] Address: [address] [place] [address], [address] # of Beds: 27 Population Served: [facility]: [facility]: [address] [place] ; [facility] [address] [facility] ; [facility] [address] . Food Resources: [place] [facility]- [address]. [place]; Meet Each Need with Dign[facility] ([facility]) [address] [facility]; [facility] [address] [facility]; [facility] [address] [facility] [place]. Mental Health resources provided: [facility] [address] [place] [address] ; [facility] [address] [address], [place], [place] [id number] ; [facility] [address] [facility] [place] [address] ; [facility] [address] [place], [place] [phone] Healthcare Clinics: [facility] [address] [facility], [address] [place]. [place] ; [facility] [address] [facility] [address] [place] [address]; [facility] [address] [facility] [place] [address] [phone] Counseling--Outpatient [facility] [address] [facility], [place] [address] (Specializes in in-depth psychotherapy for emotional distress: anxiety, depression, interpersonal conflicts, life transitions, childhood abuse) PSYCHIATRIC OUTPATIENT SERVICES [facility] Partial Hospitalization and Intensive Outpatient Program (Managed Care and [place] Only) [address] [facility] [address] [facility] [address] [facility] Partial Hospitalization and Outpatient Program [address] [place], [place] [id number] [facility] Partial Hospitalization and Outpatient Program [address] [place] [address] [facility] [address] [facility]. [address] [place], [place] [address] [facility] Partial Hospitalization and Outpatient Program [address] [place], [place] [phone]"
[2020-10-16 12:00] VITALS: BP 95/55
--- NOTE | 2020-10-16 16:23 | NUR ---
RN CLOSING NOTES DISCHARGED PT TO [facility], REPORT GIVEN TO ROSSY LACKEY, PT WILL BE IN ROOM 4B. JELANI MIDLINE STILL INTACT AND PATENT. WILL BE KEPT FOR ANTIBIOTIC IN THE FACILITY. BALDERAS CATH REMOVED ASEPTICALLY, PT WAS ABLE TO VOID. BELONGINGS ALL COMPLETE INCLUDING 2 NECKLACES AND LANYARD. BELONGING LIST SIGNED BY PT. REFUSES VACCINES DESPITE EDUCATION X3. SACRAL REDNESS PICTURE TAKEN AND PLACED IN CHART. DISCHARGE INSTRUCTIONS GIVEN TO PT, VERBALIZED UNDERSTANDING. WENT TO [facility] IN STABLE CONDITION, VS WNL ACCOMPANIED BY AMBULANCE CREW.
== END 2020-10-16 16:15 | DRG 871 ==
LOC: EDSEX 13:53 → ER 13:53 → TELE1 16:43 → TELE-TD 10-11 11:28 → TELE1 10-11 11:50
PROVIDERS: ADMIT Nurse Practitioner Acute Care; ATTEND Family Medicine
PROC: 05H933Z Insertion of Infusion Device into Right Brachial Vein, Percutaneous Approach (ICD-10-PCS; principal; 2020-10-11)
DX: A41.59 Other Gram-negative sepsis (principal); I21.A1 Myocardial infarction type 2; N17.0 Acute kidney failure with tubular necrosis; J15.9 Unspecified bacterial pneumonia; G92 Toxic encephalopathy; E43 Unspecified severe protein-calorie malnutrition; J69.0 Pneumonitis due to inhalation of food and vomit; N39.0 Urinary tract infection, site not specified; E46 Unspecified protein-calorie malnutrition; E87.2 Acidosis; J98.11 Atelectasis; I50.32 Chronic diastolic (congestive) heart failure; R64 Cachexia; N10 Acute pyelonephritis; Z16.24 Resistance to multiple antibiotics; R65.20 Severe sepsis without septic shock; I48.91 Unspecified atrial fibrillation; Z95.0 Presence of cardiac pacemaker; Z20.822 Contact with and (suspected) exposure to COVID-19; B96.89 Other specified bacterial agents as the cause of diseases classified elsewhere; E86.0 Dehydration; E78.5 Hyperlipidemia, unspecified; K21.9 Gastro-esophageal reflux disease without esophagitis; I11.0 Hypertensive heart disease with heart failure; N40.0 Benign prostatic hyperplasia without lower urinary tract symptoms; D63.8 Anemia in other chronic diseases classified elsewhere; F31.9 Bipolar disorder, unspecified; Z59.0 Homelessness; Z79.899 Other long term (current) drug therapy
CPT/HCPCS: 36415; 70450-TC; 71045-TC; 75574; 80048-TC; 80053-TC; 80061-TC; 80076-TC; 80202-TC; 81001; 83605-TC; 83735-TC; 84100-TC; 84439-TC; 84443-TC; 84484-TC; 85025-TC; 85730-TC; 87040-TC; 87081-TC; 87086-TC; 87186-TC; 93307-TC; 97110-TC; 97530-TC; A9502; C9113; G0378; J0692; J1650; J2185; J2785; J3370; J3490; J7030; J7050; J7060; U0003